=== PATIENT | male | born 1975 | race Caucasian/White ===

== ENCOUNTER 2022-03-27 06:35 | Day surgery (SDC) | payer MEDICAID, OTHER ==
[2022-03-27] MEDS ORDERED: Sodium Chloride 0.9% 1,000 ML IV SCH (07:00)
[2022-03-27] MEDS ORDERED: fentaNYL 50 MCG/ML SDV ONE (07:21)
[2022-03-27] MEDS ORDERED: Midazolam 1 MG/ML 2 ML SDV ONE (07:21)
[2022-03-27] MEDS ORDERED: Propofol 200 MG/20 ML SDV ONE ×2 (07:21→07:56)
== END 2022-03-27 09:10 | disposition home or self-care (01) ==
LOC: JP.SDS 06:35
PROVIDERS: ATTEND Surgery
DX: Z12.11 Encounter for screening for malignant neoplasm of colon (principal); I10 Essential (primary) hypertension; G47.33 Obstructive sleep apnea (adult) (pediatric); Z79.899 Other long term (current) drug therapy
CPT/HCPCS: J2250; J2704; J3010; J7030